=== PATIENT | male | born 1970 | race Caucasian/White ===

== ENCOUNTER 2025-03-03 23:15 | Inpatient (IN) | payer OTHER ==
[~2025-03-03] VITALS: Ht 180.3 cm; Wt 133.5 kg
[2025-03-04 00:29] LABS: BASO % 0.6 % (0.0-1.0); EOS # 0.1 10^3/uL (0.0-0.5); EOS % 1.6 % (0.0-3.0); HEMATOCRIT 39.3 % (42.0-52.0); HEMOGLOBIN 13.7 g/dl (13.5-17.5); LYMPH # 0.7 10^3/uL (1.5-5.0); LYMPH % 11.4 % (24.0-44.0); MEAN CORPUSCULAR HEMOGLOBIN 36.1 pg (27.0-33.0); MEAN CORPUSCULAR HGB CONC 34.9 g/dl (32.0-36.5); MEAN CORPUSCULAR VOLUME 103.4 fl (80.0-96.0); MONO # 0.5 10^3/uL (0.0-0.8); MONO % 8.6 % (2.0-8.0); NEUTROPHILS # 4.8 10^3/uL (1.5-8.5); NEUTROPHILS % 77.2 % (36.0-66.0); PLATELET COUNT, AUTOMATED 138 10^3/uL (150-450); WHITE BLOOD COUNT 6.3 10^3/uL (4.0-10.0)
[2025-03-04] MEDS ORDERED: LIDOCAINE 2% MDV 20ML VIAL As Ordered ONE (00:37)
[2025-03-04 00:49] LABS: ETHYL ALCOHOL (ETHANOL) < 0.003 % (0.000-0.010)
[2025-03-04 00:50] LABS: BLOOD UREA NITROGEN 10 MG/DL (9-23); CALCIUM LEVEL 8.3 MG/DL (8.5-10.1); CARBON DIOXIDE LEVEL 27 MMOL/L (20-31); CHLORIDE LEVEL 99 MMOL/L (98-107); CK-MB VALUE MASS < 1.0 NG/ML (<3.6); GLOMERULAR FILTRATION RATE > 90.0 (>56); GLUCOSE, FASTING 118 MG/DL (60-100); MAGNESIUM LEVEL 1.2 MG/DL (1.8-2.4); POTASSIUM SERUM 3.1 MMOL/L (3.5-5.1); SODIUM LEVEL 141 MMOL/L (136-145)
[2025-03-04 00:52] LABS: FREE T4 1.44 NG/DL (0.89-1.76); THYROID STIMULATING HORMONE 4.009 uIU/ML (0.55-4.78)
[2025-03-04 00:57] LABS: CPK CREATINE PHOSPHOKINASE 60 U/L (46-171); MB/CK RELATIVE INDEX 1.66 (< OR =4)
[2025-03-04] MEDS: MAG SULF 1GM/100ML (MAG RUN) 1 GM in IV 1 EA IV ONE (01:45)
[2025-03-04] MEDS: NS (Normal Saline) 0.9% 1,000 ML IV ONE (01:46)
[2025-03-04] MEDS: POTASSIUM CHLORIDE 10% LIQ 20MEQ/15ML UDC PO ONE (01:52)
[2025-03-04] MEDS: LIDOCAINE 2% MDV 20ML VIAL SC ONE (01:52)
[2025-03-04] MEDS ORDERED: FAMOTIDINE 20MG/2ML VIAL IVP ONE (02:00)
[2025-03-04] MEDS: PANTOPRAZOLE 40MG VIAL IV ONE (02:25)
[2025-03-04] MEDS ORDERED: ISOVUE-370 76% 100ML VIAL As Ordered ONE (02:58)
[2025-03-04] MEDS ORDERED: METO200T15 PO (04:34)
[2025-03-04] MEDS ORDERED: FLUTISP NARES (04:34)
[2025-03-04] MEDS ORDERED: CETI-24 PO (04:34)
[2025-03-04] MEDS ORDERED: LISI40TA4 PO (04:34)
[2025-03-04] MEDS ORDERED: ELIQ5TAB PO (04:34)
[2025-03-04] MEDS ORDERED: VENTAER INH (04:34)
[2025-03-04] MEDS ORDERED: MAGN400T2 PO ×2 (04:34→14:24)
[2025-03-04] MEDS ORDERED: PRIL20TA2 PO (04:34)
[2025-03-04] MEDS ORDERED: HOME MED LIST COMPLETE! XX SCH (04:40)
[2025-03-04] MEDS ORDERED: MAALOX 30 ML SUSP *UDC PO PRN (05:45)
[2025-03-04] MEDS ORDERED: MOM 30ML SUSPENSION UDC PO PRN (05:45)
[2025-03-04] MEDS ORDERED: ACETAMINOPHEN 325 MG TAB PO PRN (05:45)
[2025-03-04 06:18] LABS: AMPHETAMINES LEVEL URINE NEGATIVE (NEGATIVE); BARBITURATES URINE NEGATIVE (NEGATIVE); BENZODIAZEPINES URINE NEGATIVE (NEGATIVE); CANNABINOIDS URINE NEGATIVE (NEGATIVE); COCAINE METABOLITE URINE NEGATIVE (NEGATIVE); METHADONE URINE NEGATIVE (NEGATIVE); OPIATES URINE NEGATIVE (NEGATIVE); PHENCYCLIDINE URINE NEGATIVE (NEGATIVE)
[2025-03-04 06:21] LABS: BASO % 0.6 % (0.0-1.0); EOS # 0.1 10^3/uL (0.0-0.5); EOS % 1.5 % (0.0-3.0); HEMOGLOBIN 13.4 g/dl (13.5-17.5); LYMPH % 18.2 % (24.0-44.0); MEAN CORPUSCULAR HEMOGLOBIN 36.1 pg (27.0-33.0); MEAN CORPUSCULAR HGB CONC 35.3 g/dl (32.0-36.5); MEAN CORPUSCULAR VOLUME 102.4 fl (80.0-96.0); MONO # 0.7 10^3/uL (0.0-0.8); NEUTROPHILS # 3.6 10^3/uL (1.5-8.5); NEUTROPHILS % 66.3 % (36.0-66.0); PLATELET COUNT, AUTOMATED 126 10^3/uL (150-450); RED BLOOD COUNT 3.71 10^6/uL (4.30-6.10); WHITE BLOOD COUNT 5.4 10^3/uL (4.0-10.0)
[2025-03-04 06:40] LABS: INR 1.05; PARTIAL THROMBOPLASTIN TIME 25.4 SECONDS (24.8-34.2)
[2025-03-04 06:50] LABS: ALBUMIN 3.2 G/DL (3.2-5.2); ALKALINE PHOSPHATASE 51 U/L (40-129); ALT/SGPT 40 U/L (7.0-40); AST/SGOT 40 U/L (<34); BILIRUBIN,TOTAL 0.9 MG/DL (0.3-1.2); BLOOD UREA NITROGEN 9 MG/DL (9-23); CALCIUM LEVEL 8.2 MG/DL (8.5-10.1); CARBON DIOXIDE LEVEL 27 MMOL/L (20-31); CHLORIDE LEVEL 106 MMOL/L (98-107); CHOLESTEROL LEVEL 144 MG/DL (<200); CHOLESTEROL RISK RATIO 1.56 (<5); CREATININE FOR GFR 0.72 MG/DL (0.70-1.30); GLOMERULAR FILTRATION RATE > 90.0 (>56); GLUCOSE, FASTING 108 MG/DL (60-100); POTASSIUM SERUM 3.3 MMOL/L (3.5-5.1); SODIUM LEVEL 141 MMOL/L (136-145); TOTAL PROTEIN 6.2 G/DL (5.7-8.2); TRIGLYCERIDES LEVEL 100 MG/DL (<150)
[2025-03-04 06:52] LABS: HEMOGLOBIN A1c 4.9 % (4.0-6.0)
[2025-03-04] MEDS ORDERED: ALBUTEROL 90 MCG/ACT 8GM HFA INHALER INH PRN (06:55)
[2025-03-04] MEDS ORDERED: FLUTICASONE PROP 0.05% NASAL SPRAY 16 GM (FLONASE) NARES PRN (06:55)
[2025-03-04 07:33] LABS: FOLATE 15.58 NG/ML (>5.4); VITAMIN B12 LEVEL 190 PG/ML (211-911)
[2025-03-04] MEDS ORDERED: LORazepam 2 MG TAB PO PRN (07:50)
[2025-03-04] MEDS: THIAMINE 200MG 2ML VIAL IV SCH (08:06)
[2025-03-04] MEDS: DOCUSATE SODIUM 100MG CAPSULE PO SCH (08:07)
[2025-03-04] MEDS: CETIRIZINE 10 MG TAB PO SCH (08:08)
[2025-03-04] MEDS: APIXABAN 5 MG TAB PO SCH (08:08)
[2025-03-04] MEDS: POTASSIUM CHLORIDE 10MEQ SR TABLET PO SCH (08:08)
[2025-03-04] MEDS ORDERED: FOLIC ACID 1 MG in NS 50 ML IV SCH (09:00)
[2025-03-04] MEDS: lisinopriL 40MG TAB PO SCH (09:32)
[2025-03-04] MEDS: POTASSIUM CHLORIDE 10MEQ SR TABLET PO ONE (09:32)
[2025-03-04 09:33] VITALS: BP 149/85
[2025-03-04] MEDS: MULTIVITAMINS/MINERALS THERAP 1 TAB PO SCH (09:33)
[2025-03-04] MEDS: METOPROLOL SUCC. 100MG *XL* TAB PO SCH (09:33)
[2025-03-04] MEDS: CYANOCOBALAMIN 1,000MCG/ML 1ML VIAL IM SCH (09:45)
[2025-03-04] MEDS ORDERED: B-122500 PO (11:06)
[2025-03-04 12:40] LABS: BLOOD UREA NITROGEN 8 MG/DL (9-23); CALCIUM LEVEL 8.3 MG/DL (8.5-10.1); CARBON DIOXIDE LEVEL 28 MMOL/L (20-31); CHLORIDE LEVEL 107 MMOL/L (98-107); CREATININE FOR GFR 0.75 MG/DL (0.70-1.30); GLOMERULAR FILTRATION RATE > 90.0 (>56); GLUCOSE, FASTING 97 MG/DL (60-100); POTASSIUM SERUM 3.6 MMOL/L (3.5-5.1); SODIUM LEVEL 143 MMOL/L (136-145)
[2025-03-04] MEDS ORDERED: HEPARIN SOD 5000UNITS/ML 1ML VIAL/SYRINGE SC SCH (14:00)
[2025-03-04 14:47] LABS: MAGNESIUM LEVEL 1.6 MG/DL (1.8-2.4)
[2025-03-04 15:08] VITALS: BP 151/92; TEMP 98.4; O2SAT 98
== END 2025-03-04 15:42 | disposition home or self-care (01) | DRG 312 ==
LOC: EDBD 23:15 → M ED 23:15 → M ED INP 03-04 05:43
PROVIDERS: ADMIT Student in an Organized Health Care Education/Training Program; ATTEND Student in an Organized Health Care Education/Training Program
DX: R55 Syncope and collapse (principal); I10 Essential (primary) hypertension; J44.9 Chronic obstructive pulmonary disease, unspecified; S01.80XA Unspecified open wound of other part of head, initial encounter; E53.8 Deficiency of other specified B group vitamins; Z79.1 Long term (current) use of non-steroidal anti-inflammatories (NSAID); Z86.711 Personal history of pulmonary embolism; Z86.718 Personal history of other venous thrombosis and embolism; F10.10 Alcohol abuse, uncomplicated; F43.10 Post-traumatic stress disorder, unspecified; E83.42 Hypomagnesemia; E87.6 Hypokalemia; Z79.899 Other long term (current) drug therapy; W18.30XA Fall on same level, unspecified, initial encounter; Y92.009 Unspecified place in unspecified non-institutional (private) residence as the place of occurrence of the external cause

== ENCOUNTER → 2025-03-04 | Outpatient (CLI) | payer OTHER ==
[~2025-03-04] MED LIST: B-122500 PO; CETI-24 PO; ELIQ5TAB PO; FLUTISP NARES; LISI40TA10 PO; MAGN400T2 PO; METO200T15 PO; PRIL20TA2 PO; VENTAER INH
== END ==
LOC: M EKG 15:40
PROVIDERS: ATTEND Student in an Organized Health Care Education/Training Program
DX: R55 Syncope and collapse (principal)